=== PATIENT | female | born 1985 | race Two or more races ===

== ENCOUNTER 2016-11-15 14:25 | Inpatient (IN) | payer OTHER ==
[2016-11-15] MEDS ORDERED: LACTATED RINGERS 1,000 ML IV PRN (17:55)
[2016-11-15] MEDS ORDERED: OXYTOCIN IN LR 500 ML IV ONE ×2 (17:55→18:54)
[2016-11-15] MEDS ORDERED: MISOPROSTOL 25 MCG TABLET SL ONE (18:08)
[2016-11-15 18:12] VITALS: BMI 37.0
[2016-11-15] MEDS ORDERED: MINERAL OIL 25 ML BOT ONE (18:54)
[2016-11-15] MEDS ORDERED: IV START KIT ONE (18:54)
[2016-11-15] MEDS ORDERED: LACTATED RINGERS 1,000 ML ONE (18:54)
[2016-11-15] MEDS ORDERED: OXYTOCIN 10 UNITS/ML VIAL ONE (18:54)
[2016-11-15] MEDS ORDERED: LIDOCAINE 1% (PRES FREE) 30 ML VIAL ONE (18:54)
[2016-11-15] MEDS ORDERED: PUMP TUBING ONE (18:54)
[2016-11-15] MEDS ORDERED: LIDOCAINE Viscous 2% 15 ML UDCUP ONE (18:54)
[2016-11-15] MEDS ORDERED: PENICILLIN G POTASSIUM 5 MMU in NS 0.9% (MINI-BAG PLUS) 100 ML IV ONE (19:00)
[2016-11-15 19:54] LABS: HEMATOCRIT 31.4 % (37.0-47.0); MEAN CELL VOLUME 79.5 fl (81.0-99.0); MEAN CORPUSCULAR HEMOGLOBIN 25.3 pg (27.0-31.0); MEAN CORPUSCULAR HGB CONC 31.8 g/dl (33.0-37.0); RED CELL DISTRIBUTION WIDTH 15.9 % (11.5-14.5)
--- NOTE | 2016-11-15 20:08 | PCMAN ---
OB Admission Note - History : 6 Term: 4 : 0 Abortions (S&E): 0 Livin EDC:: 11/20/16 (unsure LMP. 39wk U/S indicates 36w) Gestational Age (weeks): 39 Days (#/7): 2 Admit Cervical Dilation:: 1 Admit Cervical Effacement (%):: 10 Admit Station:: -3 Admit Presentaton:: cephalic Membrane Status: Intact Contractions: No Heart Rate:: 135 Status:: Cat. I EFW:: 7.5lbs Summary of Course:: Belgica had late onset to care at 21w5d with unplanned and one visit at 39w1d by unsure LMP. Limited anatomy scan at 39wks indicated GA 36w3d JITENDRA 12/10/16, left sided placenta, no previa, and oligohydramnios with NILSON 4.5, EFW 3065g. Unknown GBS status, unknown GDM status (nml 1hr GTT at 39wks , HgbA1c and fasting pending), Neg GC/CT, neg RPR on 11/14, Neg UDS at onset to care and mid-, admit UDS pending (Patient aware of policy). During , Belgica has been attending [employer] parenting classes. OB Hx includes IOL for oligo and PPH. Ok with AMTSL and is open to an epidural. 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 She desires nexplanon immediate if possible. - Labs Blood Type: O (+) positive Hct/Hgb:: 10.6/34.2 Rubella Status: Immune GBS Status: Unknown - Review of Systems ros neg - Physical Exam General: Afebrile Psych/Mental Status: Mood/Affect Appropriate, Judgment/Insight Intact Neurological: Oriented x 4, Normal Speech Lungs: Clear to Auscultation Bilaterally, Normal Air Movement Cardiovascular: Regular Rate and Rhythm Extremities: Full ROM Skin: Normal Color, Warm, Dry, Intact - Problems (1) Oligohydramnios in third trimester Status: Acute Code: [id number]/Plan: A: with IUP at 36w3d by 39wk u/s and 39w2d by unsure LMP. Oligohydramnios NILSON 4.5 on 11/15 Lack of Care (visits x 2, UDS neg) GBS unknown, membranes intact GDM unknown ASC-H + HPV OB Hx: PPH, and IOL for Oligo P: Admit to [facility] cervical ripening d/t burrows score #1, reviewed options. will initiate IOL with SL miso. Admit UDS, HgbA1c, and fasting if possible, Belgica is aware of testing Encourage rest, hydration, and active movement.
[2016-11-15 20:40] LABS: AMPHETAMINES/METHAMPHETAMINES NEGATIVE (NEGATIVE); COCAINE NEGATIVE (NEGATIVE); MARIJUANA NEGATIVE (NEGATIVE); METHADONE NEGATIVE (NEGATIVE); OPIATES NEGATIVE (NEGATIVE); TRICYCLIC ANTIDEPRESSANTS NEGATIVE (NEGATIVE)
[2016-11-15] MEDS ORDERED: PENICILLIN G 3 MIL UNIT PREMIX 3 MMU in Premix (D5W) 50 ml 1 EACH IV SCH (23:00)
[2016-11-15 23:28] LABS: URINE BILIRUBIN NEGATIVE (NEGATIVE); URINE BLOOD NEGATIVE (NEGATIVE); URINE GLUCOSE (UA) NEGATIVE (NEGATIVE); URINE LEUKOCYTE ESTERASE NEGATIVE (NEGATIVE); URINE NITRITE NEGATIVE (NEGATIVE); URINE PROTEIN NEGATIVE (NEGATIVE); URINE UROBILINOGEN NORMAL (0-1 mg/dl)
[2016-11-15 23:35] LABS: URINE APPEARANCE CLEAR; URINE COLOR YELLOW
[2016-11-16] MEDS: MISOPROSTOL 25 MCG TABLET SL SCH ×3 (00:41→23:15)
[2016-11-16] MEDS ORDERED: ZOLPIDEM TARTRATE 5 MG TABLET PO PRN (01:24)
[2016-11-16] MEDS: LACTATED RINGERS 1,000 ML IV SCH ×2 (02:28→23:15)
[2016-11-16] MEDS ORDERED: PENICILLIN G POTASSIUM 5 MMU in NS 0.9% (MINI-BAG PLUS) 100 ML IV ONE (13:30)
[2016-11-16] MEDS ORDERED: PENICILLIN G POTASSIUM 5 MMU VIAL ONE (13:32)
[2016-11-16] MEDS ORDERED: NS 0.9% (MINI-BAG PLUS) 100 ML IV ONE (13:33)
--- NOTE | 2016-11-16 14:38 | PDOC36 ---
Provider Note Subject: labor progress note - cadet balloon Note: S: Belgica has slept on and off through out the night. She does not feel her frequent contractions. Following her third dose of miso, she had a break from the cervical ripening process to shower and eat. O: VE: 09/13/high, anterior, soft. Bishops #5. TOCO: q 2-3min FHT: 135/moderate variability/accels present/decels absent VSS: BP: 103/61, P: 85, R: 16, T: 36.9 A: with IUP at 39 wks by unsure LMP Oligohydramnios Cervical Ripening (miso SL 25mcg x 1, 50mcg x 2, total 3 doses) Membranes Intact, GBS unknown FHT: Cat I P: Reviewed progress made in anterior, soft cervix, but lack of cervical change due to high position of baby. Recommended cadet balloon placement, Belgica agrees to plan. Cadet balloon inserted without difficulty, inflated with 75cc sterile water per package recommendations. Encouraged rest and up right activity.
--- NOTE | 2016-11-16 14:48 | PDOC36 ---
Provider Note Subject: labor progress note - GBS unknown and monitoring Note: Note: Given lack of care, Belgica's GBS status is unknown, culture was collected on 11/14 and per verbal report from [facility] today, preliminary result is no growth of GBS. Will proceed with GBS status unknown until final culture results are received. Throughout care FHT has been Cat. I with more recent baseline 135, moderate variability, accelerations present, decelerations absent. With placement of cadet, Belgica has been more painful and requested standing in shower. Given Cat. I tracing and continued placement of cdaet indicating an early dilation, not in labor, plan was made for a limited period of intermittent auscultation to encourage freedom of movement and labor progress.
[2016-11-16] MEDS: FENTANYL 100 MCG/2 ML VIAL IV PRN ×2 (15:36→18:07)
--- NOTE | 2016-11-16 16:37 | PDOC36 ---
Provider Note Subject: labor progress note - fentanyl Note: S: Belgica is much more painful with cadet catheter. She has labored in the shower, standing, and in bed. She is requesting pain management. O: VE: 5/high, cadet balloon in the middle of the cervix, unable to remove with mild-moderate traction. Dilation likely due to cadet ballon and not sustained cervical change. CTX: q 2-5min, lasting 60-120 seconds, moderate to firm, resting tone noted FHT: 120/moderate variability/accelerations present/decelerations absent VS: BP: 121/65, R: 18, T: 36.9C, P: 97 A: with IUP at 39 wks by unsure LMP Oligohydramnios Cervical Ripening: miso SL 25mcg x 1, 50mcg x 2 (total 3 doses), and cook balloon (currently in place) Membranes Intact, GBS unknown FHT: Cat I P:Reviewed progress of cadet balloon, and while causing significant discomfort was creating progress. Given level of pain and inability to cope at this stage of labor, recommended 50mcg fentanyl, with repeat at 1hr if needed. Increased traction on cadet balloon. Encouraged rest. Anticipate .
[2016-11-16] MEDS ORDERED: DINOPROSTONE 10 MG SUP VG ONE (21:00)
--- NOTE | 2016-11-16 21:01 | PDOC36 ---
Provider Note Subject: Labor Progress Note Note: S: Belgica feels like her contractions have backed off. She does not feel them as strongly as she was earlier. O: VS: BP 132/72 P96 RR 16 T 36.6C Makenzie fell out at 1712 SVE 3cm/long/soft/posterior/-4 Godinez 5 BSL 130 pos accels, neg decels A: with IUP at 36w3d by 39wk u/s and 39w2d by unsure LMP. Oligohydramnios NILSON 4.5 on 11/15 Lack of Care (visits x 2, UDS neg) GBS unknown, preliminary negative, confirmation due at 0700 tomorrow Fetus Cat 1 GDM unknown, AIC pending Not in labor P: Eat dinner, walk for 30 minutes and do IA until continue with cervical ripening with Cervidil Ambien to help with sleep if needed. A1c ordered to further assess GDM status cEFM once Cervidil initiated
[2016-11-16 21:02] LABS: A1C-GLYCOHEMOGLOBIN 0.4 g/dl; HEMOGLOBIN-GLYCO 10.1 g/dl
[2016-11-16] MEDS: PENICILLIN G 3 MIL UNIT PREMIX 3 MMU in Premix (D5W) 50 ml 1 EACH IV SCH (23:16)
[2016-11-17] MEDS ORDERED: LACTATED RINGERS 500 ML IV SCH (04:18)
[2016-11-17] MEDS: PENICILLIN G 3 MIL UNIT PREMIX 3 MMU in Premix (D5W) 50 ml 1 EACH IV SCH ×2 (04:24→06:37)
[2016-11-17] MEDS: MISOPROSTOL 25 MCG TABLET SL SCH (04:25)
[2016-11-17] MEDS ORDERED: LACTATED RINGERS 500 ML IV PRN ×2 (04:28→13:10)
[2016-11-17] MEDS: FENTANYL 100 MCG/2 ML VIAL IV PRN ×2 (08:20→10:15)
[2016-11-17] MEDS: LACTATED RINGERS 1,000 ML IV SCH ×4 (11:03→23:20)
[2016-11-17] MEDS: OXYTOCIN IN LR 500 ML IV PRN ×3 (11:04→23:23)
[2016-11-17] MEDS ORDERED: IV START KIT ONE (11:26)
[2016-11-17] MEDS ORDERED: EPIDURAL PUMP SET ONE ×2 (12:26→23:43)
[2016-11-17] MEDS ORDERED: FENTANYL/ROPIVACAINE EPIDURAL 250 ML EP ONE (12:27)
[2016-11-17] MEDS ORDERED: EPIDURAL PROCEDURE TRAY ONE (13:02)
[2016-11-17] MEDS ORDERED: BUPIVACAINE 0.25% (PRES FREE) 30 ML VIAL ONE (13:02)
[2016-11-17] MEDS ORDERED: METOCLOPRAMIDE HCL 5 MG/ML 2ML VIAL IV PRN (13:10)
[2016-11-17] MEDS ORDERED: DIPHENHYDRAMINE HCL 50 MG/1 ML VIAL IV PRN (13:10)
[2016-11-17] MEDS ORDERED: EPHEDRINE SULFATE 50 MG/ML 1ML VIAL IV PRN (13:10)
[2016-11-17] MEDS ORDERED: SODIUM CHLORIDE 0.9% 500 ML IV PRN (13:10)
[2016-11-17] MEDS ORDERED: ONDANSETRON 4 MG/2ML 2 ML VIAL IV PRN (13:10)
[2016-11-17] MEDS ORDERED: NALOXONE HCL 0.4 MG/ML VIAL IV PRN (13:10)
[2016-11-17] MEDS ORDERED: NALBUPHINE HCL 20 MG/ML AMP IV PRN (13:10)
[2016-11-17] MEDS: FENTANYL/ROPIVACAINE EPIDURAL 250 ML EP SCH (13:30)
--- NOTE | 2016-11-17 14:35 | PDOC36 ---
Provider Note Subject: Labor Progress Note Note: Note delayed due to involvement in patient care. I evaluated Belgica at 1030 this morning: S: Belgica was able to rest last night and is eager to move forward with labor. O: VS: BP 111/56 P85 RR16 T 97.8F SVE 3-4cm/50%/-3/mid/soft Godinez 6 BSL 130 pos accels, neg decels ctx q 2-4 mins last ing 80-120 sec A: with IUP at 36w3d by 39wk u/s and 39w2d by unsure LMP. Oligohydramnios GBS neg, confirmed this AM Fetus Cat 1 GDM unlikely, A1c 5.5% Not in labor P: Discussed need to move forward with IOL and that cervix is appropriate for Pitocin augmentation at this time. Pt is painful and would like epidural. Encouraged patient to walk and use upright positions for a couple of hours after Pitocin initiation to help facilitate descent before epidural placement. Epidural was placed around 1315. Pitocin augmentation per protocol until adequate contraction pattern established. cEFM per protocol Anticipate active labor and .
--- NOTE | 2016-11-17 17:15 | PDOC36 ---
Provider Note Subject: Labor Progress Note Note: S: Belgica is comfortable with the epidural and has good mobility and good relief. O: VS: BP 112/53 P84 RR16 T 97.7F SVE 5cm/50%/-3/mid/soft Godinez 7 BSL 140 moderate variability, pos accels,occasional variable decels ctx q 2-4 mins last ing 60-90sec sec Intact membranes Pitocin 6 mU Vertex per US scan A: with IUP at 36w3d by 39wk u/s and 39w2d by unsure LMP. Oligohydramnios GBS neg, confirmed this AM Fetus Cat 2, no evidence of acidemia Latent labor P: Side-lying release and asymmetric positions to facilitate descent into pelvic inlet Position changes to facilitate descent into pelvis. Considering AROM when fetus engaged in pelvis and at appropriate station. Pitocin augmentation per protocol until adequate contraction pattern established. cEFM per protocol Anticipate active labor and .
[2016-11-18] MEDS: OXYTOCIN IN LR 500 ML IV PRN ×4 (02:16→05:19)
[2016-11-18] MEDS: LACTATED RINGERS 1,000 ML IV SCH ×5 (03:48→10:15)
--- NOTE | 2016-11-18 04:39 | PDOC36 ---
Provider Note Subject: labor progress note - arom attempt Note: S: Belgica has been sleeping on and off all night. O: VS: BP 120/56 P 92 RR16 T 37.2C SVE 5cm/50%/-3/mid/soft BSL 145 moderate variability, pos accels,occasional variable decels ctx q 2-5 mins last ing 60-90sec sec Intact membranes Pitocin 12 mU A: with IUP at 36w3d by 39wk u/s and 39w2d by unsure LMP. Oligohydramnios GBS neg, confirmed this AM Fetus Cat 2, no evidence of acidemia Latent labor P: Per exam, head applied to cervix and AROM done with no fluid return. Encouraged maternal position changes and continuation of oxytocin administration. If 20mu reached, plan to d/c pitocin and resume with placement of IUPC. Will consider amnio-infusion if variable decelerations persist. Anticipate active labor and .
[2016-11-18] MEDS ORDERED: BENZOCAINE/MENTHOL 60 APPLIC/BOT TP PRN (08:55)
[2016-11-18] MEDS ORDERED: LANOLIN 50 APPLIC/7G TUBE TP PRN (08:55)
[2016-11-18] MEDS ORDERED: CALCIUM CARBONATE 500 MG TAB.CHEW PO PRN (08:55)
[2016-11-18] MEDS ORDERED: ACETAMINOPHEN 325 MG TABLET PO PRN (08:55)
[2016-11-18] MEDS ORDERED: DOCUSATE SODIUM 100 MG CAPSULE PO PRN (08:55)
[2016-11-18] MEDS ORDERED: FLU VACC 2016-17 (36MO-64Y)/PF 60 MCG/0.5 ML SYRINGE IM V ONE (10:04)
[2016-11-18] MEDS: FENTANYL/ROPIVACAINE EPIDURAL 250 ML EP SCH (10:14)
[2016-11-18] MEDS: IBUPROFEN 800 MG TABLET PO SCH ×3 (10:16→17:08)
--- NOTE | 2016-11-18 16:37 | PCMDEL ---
Delivery Note - Labor 1st stage (hr/min):: 19h28m 2nd stage (hr/min):: 7m 3rd stage (hr/min):: 6m Total (hr/min):: 19h41m Pushed (hr/min):: 7m - Delivery Delivery (Date): 11/18/16 Delivery (Time): 08:35 Gender: Male Weight: 7 lb Length: 1 ft 7.25 in Presentation: Cephalic Position: OA Umbilical Cord: 3 Vessel Delayed Cord Clamping:: 2-3 min 1 Minute Total: 9 5 Minute Total: 9 Placenta:: cline, intact EBL:: 800mL Perineum:: intact Anesthesia/Meds:: epidural Length ROM:: 1h35m Comments:: Pt pushed well in semi-fowlers position. FHTs Category 2 for variable decelerations. Well-controlled of a viable male infant (Apgars 9/9) over an intact perineum. Baby delivered OA along with a moderate-sized blood clot. Active management with IV pitocin initiated after delivery of baby. Baby placed on maternal abdomen, cord clamped and cut after 3 minutes. A gush of blood indicating placental separation was noted and placenta was delivered Cline and intact with maternal effort and controlled cord traction. Fundal massage expressed a few clots and then fundus was firm at umbilicus, slightly deviated to the right. Perineum inspected and found to be intact. [id number]. Pt's vitals remained stable and pt was asymptomatic for her blood loss. Baby and mom skin-to -skin and bonding well. Complications: PPH of 800mL; possible partial placental abruption due to some bleeding in labor and blood clot noted with delivery.
--- NOTE | 2016-11-18 16:54 | PDOC36 ---
Provider Note Subject: labor progress note Note: S: Belgica is feeling frustrated with the lack of progress in her induction. Is amenable to a SVE at this time to assess labor progress and need for IUPC placement. O: VS: BP 111/59 P 85 RR18 T 36.8C SVE: 6cm/100%/-3/mid/soft Fetus: Baseline 130, moderate variability with periods of minimal variability, pos accels, occasional early & variable decels ctx q 2-3 mins lasting 50-70sec Pitocin 17 mU Right labia very edematous wtih varicosities noted A: 31yo IUP at 39w3d by unsure LMP IOL for oligohydramnios GBS neg Fetus Cat 2, no evidence of acidemia AROM for blood-tinged fluid P: Per exam, head applied to cervix and AROM performed for moderate amount of blood-tinged fluid. FHTs stable throughout. Will defer placement of IUPC x2 hours to see if she makes cervical change after AROM. If no change, will place IUPC to assess adequacy of contractions. Pt amenable to this plan. cEFM per protocol Pitocin titration per protocol Maternal position changes to encourage descent. Anticipate .
[2016-11-18] MEDS: HYDROCODONE/ACETAMINOPHEN 5/325MG TABLET PO PRN (22:11)
[2016-11-19] MEDS: HYDROCODONE/ACETAMINOPHEN 5/325MG TABLET PO PRN ×2 (02:49→12:06)
[2016-11-19] MEDS: IBUPROFEN 800 MG TABLET PO SCH ×3 (02:50→12:06)
[2016-11-19] MEDS: FENTANYL/ROPIVACAINE EPIDURAL 250 ML EP SCH (06:11)
[2016-11-19 06:26] LABS: HEMATOCRIT 26.2 % (37.0-47.0); HEMOGLOBIN 8.1 gm/l (12.0-16.0)
[2016-11-19 07:53] VITALS: BP 106/56
--- NOTE | 2016-11-19 11:00 | PDOC39B ---
Hospital Course: ADMIT DATE: 11/15/16 DISCHARGE DATE: 11/19/16 ADMISSION DIAGNOSES: Active Labor PROCEDURES: HISTORY OF PRESENT ILLNESS: 31 year old G6 T4 L4 at 39 weeks 5 days presenting with active labor. HOSPITAL COURSE: The patient is doing well. Ambulating and voiding without difficulty. Reports that pain is well managed with PRN Ibuprofen use. Bleeding getting system controller. exclusively without difficulty; latching well. Reports good support going home from sister and step-mom. Sister very active support with her children. FOB not involved. No hx of mood disorders; warning signs reviewed. Also desires immediate Nexplanon insertion today. By day of discharge the patient is stable, well and ready to go home. - Physical Exam Vital Signs: Temp Pulse Resp BP Pulse Ox 97.8 F 88 18 106/56 11/19/16 07:25 11/19/16 07:25 11/19/16 07:25 11/19/16 07:25 General: Afebrile, No Acute Distress Psych/Mental Status: Mood/Affect Appropriate, Judgment/Insight Intact Neurological: Grossly Intact, Alert, Oriented x 4 Cardiovascular: Regular Rate and Rhythm Breast: Soft, Skin intact, Nipples Intact, No Tenderness, No Erythema Fundus: Firm, Firm with Massage, Midline, At Umbilicus Genitourinary: Normal Female Genitalia, No Edema Lochia: Light Extremities: Full ROM, No Edema Skin: Normal Color, Warm, Dry - Discharge Diagnosis (1) care and examination of lactating mother Status: Acute - Discharge Plan Condition: Good Disposition: Home Additional Instructions: Handout given and reviewed Prescriptions: Ibuprofen [Motrin] 800 mg PO Q6H PRN #60 tablet PRN Reason: Pain FERROUS SULFATE (65 Fe) [IRON FERROUS SULFATE 325 MG TABLET (SHF)] 325 mg PO BID #90 tab Follow-Up: Thuy More CNM [Certified Nurse Supervisor [employer]] - 12/02/16 10:00 am
[2016-11-19] MEDS ORDERED: LACTATED RINGERS 1,000 ML ONE (16:37)
== END 2016-11-19 12:20 | disposition home or self-care (01) | DRG 774 ==
LOC: FBC 16:58
PROVIDERS: ADMIT Registered Nurse; ATTEND Advanced Practice Midwife
PROC: 3E0P7GC Introduction of Other Therapeutic Substance into Female Reproductive, Via Natural or Artificial Opening (ICD-10-PCS; 2016-11-15)
PROC: 10907ZC Drainage of Amniotic Fluid, Therapeutic from Products of Conception, Via Natural or Artificial Opening (ICD-10-PCS; 2016-11-17)
PROC: 10H07YZ Insertion of Other Device into Products of Conception, Via Natural or Artificial Opening (ICD-10-PCS; 2016-11-17)
PROC: 4A1H7CZ Monitoring of Products of Conception, Cardiac Rate, Via Natural or Artificial Opening (ICD-10-PCS; 2016-11-17)
PROC: 10E0XZZ Delivery of Products of Conception, External Approach (ICD-10-PCS; principal; 2016-11-18)
DX: O41.03X0 Oligohydramnios, third trimester, not applicable or unspecified (principal); O72.1 Other immediate postpartum hemorrhage; O45.93 Premature separation of placenta, unspecified, third trimester; O87.8 Other venous complications in the puerperium; Z3A.39 39 weeks gestation of pregnancy; Z37.0 Single live birth; O09.43 Supervision of pregnancy with grand multiparity, third trimester; O09.33 Supervision of pregnancy with insufficient antenatal care, third trimester; O76 Abnormality in fetal heart rate and rhythm complicating labor and delivery; O62.1 Secondary uterine inertia

== ENCOUNTER 2016-11-21 15:47 | Emergency (ER) | payer OTHER ==
[2016-11-21 17:59] LABS: ABSOLUTE NEUTROPHIL COUNT 9.8 K/mm3 (1.8-7.7); BASO % 0.2 % (0.2-1.0); EOS # 0.1 (0.0-0.5); EOS % 0.4 % (0.9-2.9); HEMOGLOBIN 8.6 gm/l (12.0-16.0); IMM NEUT # 0.2 K/mm3 (0-0.2); IMM NEUT% 1.6 % (0-1); LYMPH # 1.4 (1.0-4.8); LYMPH % 11.7 % (15-45); MEAN CELL VOLUME 81.2 fl (81.0-99.0); MEAN CORPUSCULAR HEMOGLOBIN 24.9 pg (27.0-31.0); MEAN CORPUSCULAR HGB CONC 30.7 g/dl (33.0-37.0); MONO # 0.6 (0.0-0.8); MONO % 5.3 % (4-12); NEUT % 80.8 % (43-75); PLATELET COUNT 276 K/mm3 (130-400); RED CELL DISTRIBUTION WIDTH 17.2 % (11.5-14.5)
[2016-11-21] MEDS ORDERED: ACETAMINOPHEN 500 MG TABLET ONE (18:16)
[2016-11-21] MEDS ORDERED: SODIUM CHLORIDE 0.9% 1,000 ML ONE (18:16)
[2016-11-21 18:22] LABS: ALB/GLOB RATIO 0.8 (>1.0); ALBUMIN 2.7 gm/dL (3.5-5.7); CALCIUM 8.2 mg/dL (8.6-10.3)
[2016-11-21 18:31] LABS: PH,URINE 6.5 (5.0-8.0); URINE BILIRUBIN NEGATIVE (NEGATIVE); URINE BLOOD 4+ (NEGATIVE); URINE GLUCOSE (UA) NEGATIVE (NEGATIVE); URINE LEUKOCYTE ESTERASE 2+ (NEGATIVE); URINE NITRITE POSITIVE (NEGATIVE); URINE PROTEIN NEGATIVE (NEGATIVE); URINE UROBILINOGEN NORMAL (0-1 mg/dl)
[2016-11-21 18:34] LABS: URINE APPEARANCE HAZY; URINE COLOR YELLOW
[2016-11-21 18:37] LABS: URINE WBC 20-30 /hpf
[2016-11-21 18:38] LABS: URINE BACTERIA 3+; URINE EPITHELIAL CELLS FEW /hpf
[2016-11-21] MEDS ORDERED: CEFTRIAXONE 1 GRAM DUPLEX 50 ML IV ONE (18:57)
== END 2016-11-21 19:47 | disposition home or self-care (01) ==
LOC: ED 15:47
DX: O86.20 Urinary tract infection following delivery, unspecified (principal); R00.0 Tachycardia, unspecified
CPT/HCPCS: 83605; 85025; 87040; 87086; 80053; 81001; 99283 ×2; 96361; 96365; A9270; J7030; J0696